=== PATIENT | female | born 1975 | race American Indian/Alaskan Native ===

== ENCOUNTER 2016-10-24 09:07 | Outpatient (CLI) | payer BC ==
--- NOTE | 2016-10-24 13:16 | Fluoroscopy Report ---
FLUORO GUIDED HSG: INDICATION: Infertility. Interstitial leiomyoma of uterus. COMPARISON: 01/21/2013 FINDINGS: Hysterosalpingogram performed with cervix cannulated using standard sterile precautions. Preliminary radiograph demonstrates few small pelvic phleboliths. Hand injection of 15 cc of Omnipaque-300 under fluoroscopy demonstrates promptly opacifies normal uterine cavity with slightly arcuate contour. Visualization of bilateral fallopian tubes as well. Dilation of the right fallopian tube distally though noted on subsequent images. No free spillage into the peritoneum on the right noted. Left fallopian tube appears unremarkable with normal intraperitoneal spill. CONCLUSION: 1. Right hydrosalpinx distally again noted, likely involving distal ampullary/infundibular portions without free right intraperitoneal spill. 2. Patent left fallopian tube. Arcuate uterus questioned. Thank you for the opportunity to participate in this patient's care.
== END 2016-10-24 09:08 | disposition home or self-care (01) ==
LOC: FLUORO 09:07
PROVIDERS: ATTEND Obstetrics & Gynecology
DX: D25.1 Intramural leiomyoma of uterus (principal); N97.9 Female infertility, unspecified; I87.8 Other specified disorders of veins; N70.11 Chronic salpingitis
CPT/HCPCS: 58340; 74740; Q9967